=== PATIENT | male | born 1960 | race Caucasian/White ===

== ENCOUNTER 2025-05-04 07:46 | Emergency (ER) | payer OTHER, SELFPAY ==
[2025-05-04 07:52] VITALS: BP 163/72
[2025-05-04] MEDS: TORADOL 30 MG IV (08:21)
[2025-05-04] MEDS: ZOFRAN 4 MG IV (08:24)
[2025-05-04] MEDS: NSS 500 IV (08:24)
--- NOTE | 2025-05-04 08:26 | ED.GENMED ---
History of Present Illness
General
Chief Complaint: Flank Pain
Source: patient
Exam Limitations: none
Time Seen by Provider: 05/04/25 08:00
Nursing documentation reviewed up to this point in time: agreed with
History of Present Illness
History of Present Illness:
Patient with history of kidney stones, presents to ED secondary to recurrent severe right flank pain with nausea sensation, which woke the patient up from sleep this morning. Patient's last episode was approxi-4 years ago. Denies fever or chills.
Denies back pain. Denies inability to urinate. Patient states that his pain is similar to what he has experienced in the past.
Review of Systems
Review of Systems
Allergies reviewed?: Yes
All Other Systems: ROS reviewed and negative except as documented in HPI and ROS
Constitutional: Reports no symptoms; Denies fever or chills
ABD/GI: Reports nausea; Denies vomiting
Musculoskeletal: Reports no symptoms
Skin: Reports no symptoms
Neurological: Reports no symptoms
Phy Exam
Physical Exam
Physical Exam:
Physical Exam
General: moderate painful distress, not acutely ill. afebrile
Head: nc/at. eomi
Neck: supple. normal range of motion.
Abdomen: normal bowel sounds. not tender.
Neuro: alert and oriented x 3. no focal neurological deficits
Skin: no rash
Psychiatric: well kept. interactive and cooperative
Extremities: no edema. no calf tenderness.
Course
Orders/Labs/Results
Orders:
Orders
05/04/25 08:02
0.9% Sodium Chloride 500 ml [Nss] 500 ml IV BOLUS
Ketorolac [Toradol] 30 mg IV NOW STA
Ondansetron Injectable [Zofran] 4 mg IV NOW STA
05/04/25 08:03
CT Abd/pel Without Iv Or Oral Urgent
Comment:
Reason For Exam: right flank pain
05/04/25 08:27
HYDROmorphone [Dilaudid] 0.5 mg IV NOW STA
05/04/25 08:31
Basic Metabolic Panel Urgent
Complete Blood Count/No Diff Urgent
05/04/25 10:08
Urinalysis Reflex To Culture Urgent
Date Specimen was Collected: 05/04/25
Time Specimen was Collected: 09:34
Urine Microscopic Reflex Cult Urgent
Abnormal Lab Results
05/04/25 05/04/25
08:31 10:08
WBC 3.9 L 10^3/uL
(4.8-10.8)
RBC 4.50 L 10^6/uL
(4.70-6.10)
MPV 11.2 H fL
(7.4-10.4)
BUN 21 H mg/dl
(9-20)
Glucose 145 H mg/dl
(70-99)
Ur Occult Blood Reflex 4+ A
(Negative)
Urine RBC 30-40 A /HPF
(0-2)
Urine Bacteria (Reflex) Few A
(Negative)
Urine Albumin (Reflex) 1+ A
(Neg - Trace)
05/04/25 08:31
05/04/25 08:31
Vital Signs
Initial and Last Documented VS:
Initial Vital Signs
Temp Pulse Resp BP Pulse Ox
98.9 F 50 18 163/72 100
05/04/25 07:52 05/04/25 07:52 05/04/25 07:52 05/04/25 07:52 05/04/25 07:52
Last Documented Vital Signs
Temp Pulse Resp BP Pulse Ox
98.9 F 65 16 133/77 98
05/04/25 07:52 05/04/25 10:20 05/04/25 10:20 05/04/25 10:20 05/04/25 10:20
MDM/Problems Addressed
MDM/Problems Addressed:
Patient reports significant improvement symptoms after treatment. History, exam, and CT abdomen/pelvis consistent with renal colic. Patient otherwise remains afebrile, hemodynamically stable, and appears comfortable, at time of discharge, to the
care of his . Patient will be referred to urology for outpatient consultation, along with urine strainer. Return precautions provided, i.e. fever/worsening pain/inability to urinate.
*Pulse Oximetry
SaO2: 100
Oxygen Mode of Delivery: Room air
Patient hypoxic: no
*Critical Care Note
Total Time (30-74mins, 75-104mins- exclusive of procedures): Not Applicable
ED Attending Note
-
Portions of this chart may have been created with voice recognition software.� Occasional wrong word or��sound alike� substitutions may have occurred due to the inherent limitations of voice recognition software.
Discharge Plan
Departure
Patient Disposition: Home (Routine Discharge)
Date of Disposition: 05/04/25
Time of Disposition: 10:14
Patient with high blood pressure during this ER visit?: Yes
Condition: Good
Discharge Problem:
Renal colic
Instructions: Renal Colic (DC)
Prescriptions:
New
tamsulosin [Flomax] 0.4 mg Capsule
0.4 mg PO DAILY Qty: 10 0RF
ondansetron 4 mg Tablet,Disintegrating
4 mg PO TIDPRN PRN (Reason: nausea/vomiting) Qty: 12 0RF
ketorolac 10 mg tablet
10 mg PO Q8H PRN (Reason: Pain) Qty: 10 0RF
Rx Instructions:
maximum total duration of 5 days from all oral, intranasal, or parenteral formulations
Referrals:
Mo Mirza MD [Active, Urology]
NONE,* [Family Provider, Internal Medicine]
Activity Restrictions/Additional Instructions:
As discussed, please follow-up with referred urologist for further evaluation and treatment. Please consider return to ED with worsening symptoms, i.e. fever/inability to urinate/worsening pain. Your prescriptions have been sent electronically to
[facility] pharmacy in [place].
Interventions
Interventions:
*Risk Screen - Suicide Last Done: 05/04/25 07:52
*General Assessment Last Done: 05/04/25 07:52
*Neglect/Abuse Screening Last Done: 05/04/25 07:52
*ED- Fall Risk Assessment Last Done: 05/04/25 08:30
*ED COVID-19 Vaccine History Last Done: 05/04/25 08:30
*ED Influenza Vaccine History Last Done: 05/04/25 08:30
*Nursing Disposition Last Done: 05/04/25 10:20
SI-Arpyhf-[id number] Assessment Last Done: 05/04/25 08:30
ED-Male Genitourinary Assessment Last Done: 05/04/25 08:30
Discharge Date and Time
Discharge Date/Time: 05/04/25 10:20
Print Language: GREEK
[2025-05-04] MEDS: DILAUDID 0.5 MG IV (08:29)
[2025-05-04 08:51] LABS: Hematocrit 39.1 % (39.0-52.0); Hemoglobin 13.9 g/dL (13.0-18.0); Mean Corp Hgb Conc. 35.5 g/dL (33.0-37.0); Mean Corpuscular Volume 86.9 fL (80.0-94.0); Platelet Count 142 10^3/uL (130-400); Red Cell Dist. Width 13.3 % (11.5-14.5)
[2025-05-04 09:15] LABS: Blood Urea Nitrogen 21 mg/dl (9-20); Calcium 9.4 mg/dl (8.4-10.2); Carbon Dioxide 24 mmol/L (22-30); Chloride 105 mmol/L (98-107); Glucose 145 mg/dl (70-99); Sodium 135 mmol/L (135-145); eGFR > 60.00
[2025-05-04 10:20] VITALS: BP 133/77
[2025-05-04 10:43] LABS: Urine Character Clear (Clear)
[2025-05-04 11:19] LABS: Urine Red Blood Cell 30-40 /HPF (0-2); Urine White Cell 0-2 /HPF (0-5)
[2025-05-04 11:20] LABS: Urine Squamous Cell 0-2 /LPF (Few)
== END 2025-05-04 10:20 | disposition home or self-care (01) ==
LOC: EMR 07:46
PROVIDERS: EMERGENCY PHYSICIAN Emergency Medicine
DX: N13.2 Hydronephrosis with renal and ureteral calculous obstruction (principal); R11.0 Nausea
CPT/HCPCS: 96374; 96375; 99284; 74176; 80048; 81003; 81015; 85027